=== PATIENT | female | born 1995 | race African-American/Black ===

== ENCOUNTER 2024-03-23 17:40 | Emergency (ER) | payer OTHER ==
[~2024-03-23] VITALS: Ht 157.5 cm; Wt 73.5 kg
[2024-03-23 18:00] VITALS: PULSE 68; RESP 18; TEMP 98.1
[2024-03-23] MEDS ORDERED: LOTRIMIN AF12 GM TOP (19:23)
[2024-03-23 21:17] VITALS: BP 121/80; PULSE 71; RESP 18; TEMP 98.3; O2SAT 99
== END 2024-03-23 19:40 | disposition home or self-care (01) ==
LOC: FSED 17:45
DX: B37.31 Acute candidiasis of vulva and vagina (principal); F79 Unspecified intellectual disabilities; G40.909 Epilepsy, unspecified, not intractable, without status epilepticus; F20.9 Schizophrenia, unspecified; F31.9 Bipolar disorder, unspecified
CPT/HCPCS: 99283